=== PATIENT | male | born 1985 | race Caucasian/White ===

== ENCOUNTER → 2019-05-23 | Outpatient (CLI) | payer OTHER ==
[~2019-05-23] MED LIST: WELLBUTRIN XL300 MG PO; ZOLOFT50 MG PO
== END | disposition home or self-care (01) ==
LOC: LITH 09:00
DX: N20.0 Calculus of kidney (principal); F32.9 Major depressive disorder, single episode, unspecified; F41.9 Anxiety disorder, unspecified; Z88.8 Allergy status to other drugs, medicaments and biological substances; Z79.899 Other long term (current) drug therapy